=== PATIENT | male | born 1955 | race Caucasian/White ===

== ENCOUNTER 2018-04-13 06:18 | Day surgery (SDC) | payer BC, MEDICARE ==
[2018-04-11 13:02] VITALS: BMI 32.8
[~2018-04-13 06:18] MED LIST: SODIUM CHLORIDE 0.9% 1,000 ML IV SCH
[2018-04-13 06:55] LABS: Basophils % (A) 1 %; Eosinophils # (A) 0.1 k/uL (0-0.7); Eosinophils % (A) 2 %; HCT 47.8 % (39.0-53.0); HGB 15.9 gm/dL (13.0-17.5); Lymphocytes # (A) 1.8 k/uL (1.0-4.8); Lymphocytes % (A) 28 %; MCH 31.9 pg (25.0-35.0); MCHC 33.3 g/dL (31.0-37.0); MCV 95.8 fL (80.0-100.0); Mean Platelet Volume 6.8; Monocytes # (A) 0.5 k/uL (0-1.0); Monocytes % (A) 8 %; Neutrophils % (A) 61 %; Platelet Count 192 k/uL (150-450); RBC 4.99 m/uL (4.30-5.90); RDW 12.8 % (11.5-15.5); WBC 6.6 k/uL (3.8-10.6)
[2018-04-13 07:06] LABS: Anion Gap 9 mmol/L; Blood Urea Nitrogen 24 mg/dL (9-20); Calcium 9.7 mg/dL (8.4-10.2); Carbon Dioxide 28 mmol/L (22-30); Chloride 104 mmol/L (98-107); Glucose 119 mg/dL (74-99); Sodium 141 mmol/L (137-145)
[2018-04-13] MEDS ORDERED: ONDANSETRON 4 MG/2 ML VIAL ONE (07:10)
[2018-04-13] MEDS ORDERED: PROTAMINE SULFATE 10 MG/ML 5 ML VIAL IV ONE (07:10)
[2018-04-13] MEDS ORDERED: HEPARIN SODIUM,PORCINE 10,000 UNIT/ML 1 ML VIAL ONE (07:10)
[2018-04-13] MEDS ORDERED: MIDAZOLAM 2 MG/2 ML VIAL ONE (07:10)
[2018-04-13] MEDS ORDERED: ISOPROTERENOL 250 MCG/1.25 ML SYR IV ONE (07:10)
[2018-04-13] MEDS ORDERED: PROPOFOL 10 MG/ML 20 ML VIAL IV ONE (07:10)
[2018-04-13] MEDS ORDERED: fentaNYL (PF) 50 MCG/ML 2 ML AMP ONE (07:10)
[2018-04-13 07:12] LABS: Potassium 5.2 mmol/L (3.5-5.1)
[2018-04-13] MEDS ORDERED: LIDOCAINE 1% INJ 10MG/ML (20 ML MDV) SQ ONE ×2 (08:00→08:11)
[2018-04-13] MEDS ORDERED: HEPARIN SODIUM (1,000 UNIT/ML) 1,000 UNIT in SODIUM CHLORIDE 0.9% 1,000 ML IRRIGATION ONE (08:02)
[2018-04-13] MEDS ORDERED: HEPARIN SOD,PORK IN 0.45% NACL 25,000 UNIT in 0.45% NACL 1 250ML.BAG IV ONE (08:03)
[2018-04-13] MEDS ORDERED: LIDOCAINE 1% INJ 10MG/ML (20 ML MDV) ONE (08:09)
[2018-04-13] MEDS ORDERED: IOPAMIDOL-370 125ML BTL INJ ONE (10:40)
--- NOTE | 2018-04-13 11:36 | CC ---
CARDIAC CATHETERIZATION REPORT Mr. Cee is a 62-year-old male with known history of frequent ventricular ectopic activity, symptomatic, intolerant to beta osmany because of severe bradycardia, has been evaluated by Dr. Rodas to undergo ablation. He was in the EP lab undergoing ablation and because of the location of the ablation catheter, recommendation made regarding coronary angiography to localize the coronaries in relation to the ablation catheter. PROCEDURE: Using the 8-Arabic sheath in the right femoral artery, selective right and left angiography performed, a 6-Arabic 4 bend right and left Jian catheter, multiple views of the coronary artery including hemiaxial views were obtained. Following that, catheter were removed and Dr. Hernandez proceeded in continuing the ablation. FINDINGS: LEFT MAIN: This is a large-sized vessel, bifurcating into left circumflex, left anterior descending artery. Left main coronary artery has no evidence of high-grade stenosis. LEFT VENTRICULAR DESCENDING ARTERY: This is a large-sized vessel that has no evidence of high-grade stenosis. LEFT CIRCUMFLEX: This is a nondominant vessel, giving rise to an obtuse marginal branch. The left circumflex and its branches have no evidence of obstructive coronary artery disease. RIGHT CORONARY ARTERY: This is a large dominant vessel, bifurcating into PDA and posterolateral segment branches. The right coronary artery and its branches have no evidence of high-grade stenosis. CONCLUSION: Normal coronary arteries. RECOMMENDATION: Patient images are reviewed in conjunction with the images from the EP lab to localize the coronary arteries and proceed with ablation. There was no immediate complication. Duration of procedure is 10 minutes. MMODL / IJN: [id number] /
[2018-04-13] MEDS ORDERED: HYDROcodone/APAP 5-325MG 1 EACH TAB PO PRN (12:26)
[2018-04-13] MEDS ORDERED: FOLIC ACID 1 MG TAB PO SCH (12:45)
[2018-04-13] MEDS ORDERED: ACETAMINOPHEN IV (For NPO) 1,000 MG in EMPTY BAG 1 BAG IVPB ONE (13:00)
[2018-04-13] MEDS: ACETAMINOPHEN TAB 325 MG TAB PO PRN (19:45)
[2018-04-13] MEDS ORDERED: METOPROLOL TARTRATE 12.5 MG TAB PO SCH (21:00)
--- NOTE | 2018-04-13 21:32 | PCN ---
PROCEDURE NOTE Mr. Rudy Cee is a 62-year-old male patient who has very frequent PVCs almost 40-50 percent PVC burden, right bundle branch block pattern with upright QRS in 2, 3, AVF and rS pattern in lead 1 consistent with an anterior anterolateral PVC. He is brought to the EP lab in a fasting state. Written informed consent was obtained prior to the procedure. The procedure was performed under conscious sedation. Right and left groins were prepped and draped as per protocol. 1% lidocaine was used for local anesthesia. An 8-Jordanian arterial sheath was placed in the right femoral artery. This was a long sheath, 15 degrees. Venous sheaths were placed in the right and left femoral veins. Via these mapping and diagnostic catheters were placed including high right atrial catheter, His bundle, RV coronary sinus, LV, intracardiac echo catheter and the PentaRay catheter and a mapping ablation catheter. Sinus cycle length 753 milliseconds, DC interval 159 milliseconds, QRS 93 milliseconds, QT 363 milliseconds. AH interval 58 milliseconds, HV interval 50 milliseconds. This AV node Wenckebach block 260 milliseconds, left bundle branch block aberrancy during pacing. Atrial ERP from the coronary sinus 500/less than 400 milliseconds. AV node Wenckebach performed in the high right atrium 290 milliseconds. Burst stimulation from the right ventricle was performed. No arrhythmias induced. Patient had frequent PVCs in a bigeminal pattern. He was in ventricular bigeminy during the study. The 1st intracardiac echocardiography was performed. A 3D mapping was performed. The electro anatomic shell of the open aortic cusps was made. The electro anatomic shell of the coronary sinus was made, electro anatomic shell of the LV was made endocardially. A PentaRay catheter was placed retrogradely into the LV. The aortic root as well as the left ventricle were mapped and the earliest activation was found to be in a broad area in a somewhat broad area about a half to 1 cm on the anterior/anterolateral aspect of the base of the left ventricle just lateral to the left coronary cusp away from the left main. During mapping, it was observed that when pressure was applied to the catheter, the PVCs would disappear. RF ablation was applied at the earliest site which preceded the onset of the PVC by about between 10-20 milliseconds. The unipolar were sloping downwards and occasionally had sharp downward slope. The paced mapping however was suboptimal. RF ablation at this time with contact force of greater than 15 g and power between 30-40 cardoza resulted only in transient elimination of the PVCs. This area was then mapped once again, high output pacing was performed. Noncapture was noted at this site. However, the PVCs continued. The coronary sinus were then mapped. A long sheath was placed in the coronary sinus. Mapping ablation catheter was placed and irrigated tip catheter was placed in the coronary sinus and placed anteriorly close to the anterior septal branch. Activation mapping here resulted in early signals with the earliest activation of almost 26 milliseconds with better unipolar electrograms. Following this, Dr. Gill was brought in to perform an angiogram to make sure that this planned ablation site was at least 0.5 cm away from the coronary arteries. The coronary arteries are normal and the ablation site within the coronary sinus was at least half to 1 cm away from the coronary arteries. RF ablation was then applied at 10 cardoza for 10 seconds, at the 1st lesion itself within seconds, there was complete elimination of the PVCs and never returned again. RF ablations lasting 10 seconds at 15 cardoza was applied with irrigated tip catheter in the earliest activation sites in the coronary sinus and PVCs could not be induced again. Following that high-dose Isuprel was employed and ventricular pacing was performed. Burst stimulation was performed. Nonclinical PVCs were noted, but his clinical PVCs did not appear again. This was a long procedure because it involved mapping of the electroanatomic mapping of the left ventricle, ablation of the earliest site and repeat mapping of the left ventricle then access in the coronary sinus and the coronary arteries and mapping the coronary sinus to find the earliest site and radiofrequency ablation at this site. The patient tolerated the procedure well without any acute complications. There was no pericardial effusion at the end of the procedure. RESULT: Successful ablation of the epicardial PVCs (left ventricular epicardium) from within the anterior anteroseptal region of the coronary sinus with elimination of the PVCs within seconds and turning on RF at the earliest activation site which had a bipolar electrogram that preceded the PVC by 26 milliseconds and reasonably sharp downward deflection of the unipolar electrograms. The patient tolerated the procedure well without any acute complications. MMODL / IJN: [id number] /
--- NOTE | 2018-04-13 21:33 | LTR ---
DATE OF SERVICE: 04/13/[address] Pickering: I had the pleasure of seeing . Rudy Cee [place] electrophysiology followup. Rudy underwent mapping ablation of his ventricular bigeminy. He was found to have an epicardial PVC focus and successful ablation was performed via the coronary veins. After ensuring that the coronary arteries were at an adequate and safe distance away from the site. He tolerated the procedure well without any acute complications. He will continue to follow up with you and Dr. Gill as before. His beta blockers can be stopped within the next few weeks. Thank you for entrusting me in the care of your patient. Warm regards, Sincerely, MMODL / IJN: [id number] /
[2018-04-14] MEDS: ACETAMINOPHEN TAB 325 MG TAB PO PRN (06:14)
--- NOTE | 2018-04-14 07:05 | P.DS ---
Providers Attending physician: Robson Rodas Primary care physician: [facility] Course: Patient is doing well. His groins of healed well there is no pain no swelling no tenderness Denies any chest discomfort no pleuritic chest discomfort no breathing trouble no dizziness lightheadedness On examination his vitals are stable blood pressure 136/74 mmHg heart rates are normal no PVCs on telemetry Sounds are clear no rhonchi no crackles Abdomen is soft nontender Extremities are warm no edema Impression Very high PVC pertinent of between 40-50%, symptomatic Epicardial PVC focus anterolateral LV Successful PVC ablation V at the coronary sinus anterior vein Suggest Baby aspirin for 4 weeks and then stop Continue cardiac medications for now Follow-up in the office with Dr. Dr. Gill in 1 week Plan - Discharge Summary Discharge Rx Participant: No New Discharge Prescriptions: No Action Venlafaxine HCl [Effexor] 75 mg PO DAILY Pantoprazole Sodium [Protonix] 20 mg PO DAILY Metoprolol Tartrate [Lopressor] 12.5 mg PO HS Metoprolol Tartrate [Lopressor] 25 mg PO QAM Methotrexate Sodium [Methotrexate] 2.5 mg PO FR Folic Acid 1 mg PO SUMOTUWETHSA Discharge Medication List Folic Acid 1 mg PO SUMOTUWETHSA 04/11/18 [History] Methotrexate Sodium [Methotrexate] 2.5 mg PO FR 04/11/18 [History] Metoprolol Tartrate [Lopressor] 12.5 mg PO HS 04/11/18 [History] Metoprolol Tartrate [Lopressor] 25 mg PO QAM 04/11/18 [History] Pantoprazole Sodium [Protonix] 20 mg PO DAILY 04/11/18 [History] Venlafaxine HCl [Effexor] 75 mg PO DAILY 04/11/18 [History] Follow up Appointment(s)/Referral(s): Yanet Gill MD [STAFF PHYSICIAN] - 1 Week (Follow-up with Dr. Gill in 1 week Discharge home if stable, by 10 AM today No changes in medications) Activity/Diet/Wound Care/Special Instructions: Post EP study - Ablation instructions 1. Keep access sites dry for 2 days. 2. No heavy lifting or straining for 2 days. 3. Avoid bending the hips repeatedly for 2 days. 4. You may go up and down stairs slowly Call if the following is noted 1. Bleeding, increasing swelling or pain at the access sites. 2. Increasing chest discomfort, especially upon taking a deep breath. 3. Increasing shortness of breath, at rest or with exertion. 4. Undue cough / phlegm 5. Difficulty or pain while swallowing. 6. Pain or change in color in the extremities. 7. Fever, chills, rigors. 8. Increasing headache or neurologic symptoms. 9. Dizziness, fainting, palpitations No changes in medications Follow-up Dr. Gill in 1 week Discharge Disposition: HOME SELF-CARE
[2018-04-14] MEDS ORDERED: PANTOPRAZOLE 40 MG TABLET PO SCH (07:30)
[2018-04-14 08:16] VITALS: RESP 15
[2018-04-14] MEDS ORDERED: METHOTREXATE SODIUM 2.5 MG TAB PO SCH (09:00)
[2018-04-14] MEDS ORDERED: METOPROLOL TARTRATE 25 MG TAB PO SCH (09:00)
[2018-04-14] MEDS ORDERED: VENLAFAXINE HCL 75 MG TAB PO SCH (09:00)
[2018-04-14 10:07] VITALS: BP 152/90; PULSE 60; TEMP 98.3
== END 2018-04-14 10:58 | disposition home or self-care (01) ==
LOC: CATHEP 06:18 → 1SOBS 11:45 → CATHEP 04-14 10:58
PROVIDERS: ATTEND Internal Medicine Clinical Cardiac Electrophysiology
DX: I49.3 Ventricular premature depolarization (principal); I42.9 Cardiomyopathy, unspecified; I45.10 Unspecified right bundle-branch block; I10 Essential (primary) hypertension; G47.33 Obstructive sleep apnea (adult) (pediatric); Z99.89 Dependence on other enabling machines and devices; K21.9 Gastro-esophageal reflux disease without esophagitis; Z82.49 Family history of ischemic heart disease and other diseases of the circulatory system; Z79.899 Other long term (current) drug therapy
CPT/HCPCS: 93454; 85347; 93623; 93662; 93654; 80048; 85025; C1769 ×3; C1894; C1730; C1731; C1759; C1893; C1732; J2250; J2720; J1644 ×3; J2405; J2001; J8610; J3010; J0131; J2704; Q9967; 93613

== ENCOUNTER → 2020-10-31 | Outpatient (CLI) | payer MEDICARE ==
--- NOTE | 2020-10-31 13:52 | XR ---
EXAM TYPE: LUMBAR SPINE X RAY SERIES COMPARISON: NONE HISTORY: Pain TECHNIQUE: Three views are submitted. FINDINGS: Alignment is anatomic. The pedicles are intact. The transverse processes are intact. There is hype rtrophic and degenerative changes throughout the lumbar spine most marked at L3-4 and L4-5. Anterior hypertrophic spurs are noted. There are vascular. No spondylolisthesis. Multilevel facet arthropathy. IMPRESSION: 1. Multilevel facet arthropathy and degenerative disc disease most marked at L3-4 and L4-L5. Foramina l encroachment is suspected consider follow-up MRI.
== END | disposition home or self-care (01) ==
LOC: RADXRMAIN 13:13
PROVIDERS: ATTEND Internal Medicine
DX: M51.36 Other intervertebral disc degeneration, lumbar region (principal); M46.96 Unspecified inflammatory spondylopathy, lumbar region; G89.29 Other chronic pain
CPT/HCPCS: 72100

== ENCOUNTER → 2021-01-09 | Outpatient (CLI) | payer MEDICARE, BC ==
--- NOTE | 2021-01-09 10:54 | XR ---
EXAMINATION TYPE: XR chest 2V DATE OF EXAM: 01/09/2021 COMPARISON: NONE TECHNIQUE: PA and lateral views submitted. HISTORY: Presurgical FINDINGS: The lungs are clear and there is no pneumothorax, pleural effusion, or focal pneumonia. Heart size normal. No overt failure. IMPRESSION: 1. No acute process.
== END | disposition home or self-care (01) ==
LOC: RADXRMAIN 10:14
PROVIDERS: ATTEND Neurological Surgery
DX: Z01.818 Encounter for other preprocedural examination (principal)
CPT/HCPCS: 71046

== ENCOUNTER → 2021-04-03 | Outpatient (CLI) | payer MEDICARE, BC ==
--- NOTE | 2021-04-03 12:33 | US ---
EXAMINATION TYPE: US venous doppler duplex LE LT DATE OF EXAM: 04/03/2021 12:02 PM COMPARISON: NONE CLINICAL HISTORY: M79.605 Left leg pain. Left calf cramping per patient. No redness. Slight swellin g per patient. SIDE PERFORMED: Left TECHNIQUE: The lower extremity deep venous system is examined utilizing real time linear array sonog luda with graded compression, doppler sonography and color-flow sonography. VESSELS IMAGED: Common Femoral Vein Deep Femoral Vein Greater Saphenous Vein * Femoral Vein Popliteal Vein Small Saphenous Vein * Proximal Calf Veins (* superficial vessels) Left Leg: Negative for DVT Grayscale, color doppler, spectral doppler imaging performed of the deep veins of the left lower extr emity. There is normal flow, compressibility, vascular waveforms. IMPRESSION: No ultrasound evidence for acute DVT in the left lower extremity.
== END | disposition home or self-care (01) ==
LOC: RADUSWWP 11:44
PROVIDERS: ATTEND Internal Medicine
DX: M79.605 Pain in left leg (principal)

== ENCOUNTER → 2024-02-14 | Outpatient (CLI) | payer MEDICARE ==
--- NOTE | 2024-02-16 09:39 | US ---
EXAMINATION TYPE: US groin RT DATE OF EXAM: 02/14/2024 COMPARISON: NONE CLINICAL INDICATION: Male, 68 years old with history of K40.90 UNIL INGUINAL HERNIA, W/O OBST OR GANG R, NO; Pt had hernia repair surgery in 2019 in rt groin with mesh and patient states he is starting t o have pain in that area. TECHNIQUE: Right groin scanned in area of pain. FINDINGS: No obvious abnormality found in area of pain IMPRESSION: No evidence for acute process mass or lymphadenopathy. [facility], , 02/16/2024 9:37 AM
== END | disposition home or self-care (01) ==
LOC: RADUSWWP 15:21
PROVIDERS: ATTEND Surgery
DX: K40.90 Unilateral inguinal hernia, without obstruction or gangrene, not specified as recurrent (principal)

== ENCOUNTER → 2024-02-24 | Outpatient (CLI) | payer MEDICARE ==
[2024-02-24 08:59] LABS: African American GFR (CKD) >90 (>60 ml/min/1.73 sqM); Blood Urea Nitrogen 24 mg/dL (9-20); Non-African American GFR(CKD) >90 (>60 ml/min/1.73 sqM)
--- NOTE | 2024-02-24 10:32 | CT ---
EXAMINATION TYPE: CT pelvis w con CT DLP: 1557.8 mGycm, Automated exposure control for dose reduction was used. DATE OF EXAM: 02/24/2024 10:18 AM COMPARISON: Right groin ultrasound 02/14/2024 CLINICAL INDICATION:Male, 68 years old with history of HERNIA; HX OF INGUINAL HERNIA REPAIR IN , POSSIBLY NEED NEW REPAIR. TECHNIQUE: Standard CT of the pelvis following the administration of 100 cc of Isovue [address] material and oral contrast. Coronal and sagittal reformats were performed. FINDINGS: BLADDER: Unremarkable. Contrast is demonstrated within the urinary bladder distal bilateral ureters o n delayed phase. REPRODUCTIVE: Unremarkable. BOWEL: A few scattered distal colonic diverticula or definite sigmoid colon. Enteric contrast is demo nstrated within the small bowel. The visualized portion of the appendix is unremarkable. No evidence of bowel obstruction. PERITONEUM: No evidence of pneumoperitoneum or free fluid. VASCULATURE: Mild atherosclerotic calcification of the aorta and its branches. MUSCULOSKELETAL: No acute osseous abnormalities. Moderate degenerative disease of the visualized lumb ar spine. Post surgical changes with disc spacer identified at L2-L3. LYMPH NODES: No evidence for lymphadenopathy. SOFT TISSUE/ABDOMINAL WALL: Postsurgical changes from right inguinal hernia repair without evidence f or recurrent hernia or abnormality. Minimally patulous at the left inguinal ring. IMPRESSION: 1. Postsurgical changes from right inguinal hernia repair without evidence for recurrent hernia or a bnormality. 2. Colonic diverticulosis without evidence for acute diverticulitis. [facility], , 02/24/2024 10:30 AM
== END | disposition home or self-care (01) ==
LOC: RADCTMAIN 07:53
PROVIDERS: ATTEND Surgery
DX: K40.90 Unilateral inguinal hernia, without obstruction or gangrene, not specified as recurrent
CPT/HCPCS: 36415; 72193; 82565; 84520

== ENCOUNTER → 2024-05-29 | Outpatient (CLI) | payer MEDICARE | END | disposition home or self-care (01) | LOC: LABWHC1 10:43 | PROVIDERS: ATTEND Internal Medicine Interventional Cardiology | DX: I42.8 Other cardiomyopathies (principal) | CPT/HCPCS: 36415; 83880 ==

== ENCOUNTER → 2024-07-24 | Outpatient (CLI) | payer MEDICARE ==
[2024-07-24 08:46] LABS: Appearance,Urine Clear (Clear); Bilirubin,Urine Negative (Negative); Blood,Urine Negative (Negative); Color,Urine Colorless; Glucose,Urine (UA) 4+ (Negative); Ketones,Urine Negative (Negative); Leukocyte Esterase,Urine Negative (Negative); Nitrite,Urine Negative (Negative); Protein,Urine Negative (Negative); Specific Gravity,Urine 1.013 (1.001-1.035); Urobilinogen,Urine <2.0 mg/dL (<2.0)
[2024-07-24 17:54] LABS: Basophils # (A) 0.05 X 10*3/uL (0.00-0.10); Basophils % (A) 0.6 %; Eosinophils % (A) 1.2 %; HCT 44.5 % (39.6-50.0); Lymphocytes # (A) 1.64 X 10*3/uL (0.90-5.00); Lymphocytes % (A) 18.9 %; MCH 32.1 pg (27.0-32.0); MCHC 31.5 g/dL (32.0-37.0); MCV 102.1 FL (80.0-97.0); Mean Platelet Volume 9.1 FL (9.5-12.2); Monocytes # (A) 0.69 X 10*3/uL (0.20-1.00); Monocytes % (A) 7.9 %; NRBC Per 100 WBC 0 X 10*3/uL (0.00-0.01); Neutrophils # (A) 6.17 X 10*3/uL (1.80-7.70); Neutrophils % (A) 70.9 %; Platelet Count 332 X 10*3/uL (140-440); RBC 4.36 X 10*6/uL (4.40-5.60); RDW 13.4 % (11.5-14.5); WBC 8.69 X 10*3/uL (4.50-10.00)
[2024-07-24 18:28] LABS: ALT 22 U/L (10-49); AST 22 U/L (14-35); Albumin 4.3 g/dL (3.8-4.9); Albumin/Globulin Ratio 2.05 Ratio (1.60-3.17); Alkaline Phosphatase 48 U/L (41-126); BUN/Creat Ratio 17.11 Ratio (12.00-20.00); Blood Urea Nitrogen 15.4 mg/dL (9.0-27.0); Calcium 9.5 mg/dL (8.7-10.3); Carbon Dioxide 25.8 mmol/L (21.6-31.8); Chloride 99 mmol/L (96-109); Globulin 2.1 g/dL (1.6-3.3); Glucose 144 mg/dL (70-110); LDL Cholesterol,Calculated 18.3 mg/dL (0.0-131.0); Potassium 4.8 mmol/L (3.5-5.5); Sodium 136 mmol/L (135-145); Total Bilirubin 0.6 mg/dL (0.3-1.2); Total Protein 6.4 g/dL (6.2-8.2)
[2024-07-25 01:01] LABS: Microalbumin Creatinine Ratio <28 mg/g Cr (0-30); Urine Creatinine 43.2 mg/dL (39.0-259.0)
== END | disposition home or self-care (01) ==
LOC: LABWHC1 07:53
PROVIDERS: ATTEND Internal Medicine
DX: Z00.00 Encounter for general adult medical examination without abnormal findings (principal); I10 Essential (primary) hypertension; I49.3 Ventricular premature depolarization; E78.2 Mixed hyperlipidemia; E11.69 Type 2 diabetes mellitus with other specified complication
CPT/HCPCS: 36415; 80053; 80061; 81003; 82043; 82306; 82570; 83036; 83735; 84443; 85025

== ENCOUNTER 2024-08-19 18:11 | Emergency (ER) | payer MEDICARE ==
--- NOTE | 2024-08-19 18:43 | ED ---
Arrhythmia/Palpitations HPI - General Chief Complaint: Arrhythmia/Palpitations Stated Complaint: hypertension Time Seen by Provider: 08/19/24 18:17 Source: patient Mode of arrival: ambulatory Limitations: no limitations - History of Present Illness Initial Comments: This patient is a 68-year-old man with history of 2 previous ablations who presents with complaint that his heart rate had been markedly elevated earlier. The patient states that he had been exerting himself, he was playing with a granddaughter when he noticed that his heart rate took off. He states that he has a monitor and it was reading in the 150s. The patient states that he then rested. Patient also was having some comfort in the back of the head and neck and also diaphoresis associated. When the heart rate continued to be in the 130s his family persuaded him to come to the emergency department. He also notes that he was having some symptoms intermittently over the past week or so but when the heart rate was elevated that did not persist. His heart rate is lower now and the associated symptoms have all resolved. MD Complaint: rapid heart beat -: hour(s) Context: occurred during exertion Arrhythmia History: atrial fibrillation, on anti-coagulants, history of ablation Associated Symptoms: chest pain, diaphoresis Treatments Prior to Arrival: beta-osmany - Related Data Home Medications Medication Instructions Recorded Confirmed Folic Acid 1 mg PO SUMOTUWETHSA 04/11/18 06/06/24 Metoprolol Tartrate [Lopressor] 25 mg PO BID 04/11/18 06/06/24 Pantoprazole Sodium [Protonix] 40 mg PO DAILY 04/11/18 06/06/24 Venlafaxine HCl [Effexor] 75 mg PO DAILY 04/11/18 06/06/24 metHOTREXate sodium 2.5 mg PO FR 04/11/18 06/06/24 Atorvastatin Calcium [Lipitor] 40 mg PO DAILY 06/01/24 06/06/24 Cholecalciferol (Vitamin D3) 2,000 units PO DAILY 06/01/24 06/06/24 [Vitamin D3 (50 Mcg = 2000 Iu)] Empagliflozin [Jardiance] 25 mg PO DAILY 06/01/24 06/06/24 Ezetimibe [Zetia] 10 mg PO DAILY 06/01/24 06/06/24 Multivitamin [Multivitamins Adult 1 each PO DAILY 06/01/24 06/06/24 Gummies] Spironolactone [Aldactone] 25 mg PO DAILY 06/01/24 06/06/24 Tamsulosin [Flomax] 0.4 mg PO DAILY 06/01/24 06/06/24 lisinopriL [Zestril] 10 mg PO BID 06/01/24 06/06/24 metFORMIN HCL 1,000 mg PO HS 06/01/24 06/06/24 Previous Rx's Medication Instructions Recorded HYDROcodone/APAP 5-325MG [[place] 1 tab PO Q6HR PRN 3 Days #10 tab 06/06/24 5-325] Allergies Allergy/AdvReac Type Severity Reaction Status Date / Time No Known Allergies Allergy Verified 08/19/24 18:16 Review of Systems ROS Statement: Those systems with pertinent positive or pertinent negative responses have been documented in the HPI. ROS Other: All systems not noted in ROS Statement are negative. Constitutional: Denies: fever, chills, weakness Eyes: Denies: vision change Respiratory: Denies: cough, dyspnea Cardiovascular: Reports: chest pain, palpitations. Denies: orthopnea, edema, syncope Gastrointestinal: Reports: nausea. Denies: abdominal pain, vomiting, diarrhea Genitourinary: Denies: dysuria, hematuria Musculoskeletal: Denies: back pain Skin: Denies: rash Neurological: Denies: headache, weakness Past Medical History Past Medical History: GERD/Reflux, Hypertension, Sleep Apnea/CPAP/BIPAP Additional Past Medical History / Comment(s): SEE DR RODAS H&P, HX OF DERCUMS DX, HX OF NUTCRACKER ESOPHAGUS, POSTIONAL VERTIGO, DIVERTICULOSIS History of Any Multi-Drug Resistant Organisms: None Reported Past Surgical History: Cholecystectomy, Hernia Repair Additional Past Surgical History / Comment(s): PYLORIC STENOSIS SX , RT INGUINAL HERNIA REPAIR, STATES 149 FATTY TUMORS REMOVED R/T DERCUMS DX Additional Past Anesthesia/Blood Transfusion Reaction / Comment(s): STATES PREV HX OF ISSUES WITH ANESTHESIA, NONE SINCE 100LB WT LOSS Past Psychological History: Depression Smoking Status: Never smoker - Past Family History Mother Family Medical History: Diabetes Mellitus Father Additional Family Medical History / Comment(s): AT AGE 50 IN MIDDLE OF OPEN HEART General Exam Limitations: no limitations General appearance: alert, in no apparent distress Head exam: Present: atraumatic, normocephalic Eye exam: Present: normal appearance. Absent: scleral icterus, conjunctival injection ENT exam: Present: normal oropharynx Neck exam: Present: normal inspection Respiratory exam: Present: normal lung sounds bilaterally. Absent: respiratory distress, wheezes, rales, rhonchi, stridor, accessory muscle use Cardiovascular Exam: Present: regular rate, normal rhythm, normal heart sounds. Absent: systolic murmur, diastolic murmur, rubs, gallop GI/Abdominal exam: Present: soft. Absent: distended, tenderness, guarding, rebound, rigid, mass Extremities exam: Present: normal inspection, normal capillary refill. Absent: pedal edema, calf tenderness Back exam: Present: normal inspection. Absent: CVA tenderness (R), CVA tender ness (L) Neurological exam: Present: alert Skin exam: Present: warm, dry, intact, normal color. Absent: rash Course Vital Signs 08/19/24 08/19/24 08/19/24 18:13 18:30 21:11 Temperature 98.5 F 98.4 F Pulse Rate 113 H 103 H 90 Respiratory 18 18 17 Rate Blood Pressure 126/82 130/72 O2 Sat by Pulse 96 97 95 Oximetry EKG Findings - EKG Results: EKG: interpreted by ERMD, sinus rhythm EKG shows: tachycardia (104 bpm) - Blocks, [place], Hypertrophy, ST Abn: QRS axis and voltage: left axis deviation (-30 to -90) (Borderline), pulmonary disease, low voltage (<0.5 MV total QRS and <1.0 MV in each precordial lead) Medical Decision Making - Medical Decision Making Patient had chest x-ray that I interpreted as negative for acute infiltrate, pneumothorax, congestive heart failure Was pt. sent in by a medical professional or institution (, PA, MAT REPAIRER, urgent care, hospital, or fpc...) When possible be specific @ -[No] Did you speak to anyone other than the patient for history (EMS, parent, family, police, friend...)? What history was obtained from this source @ -[No] Did you review nursing and triage notes (agree or disagree)? Why? @ -[I reviewed and agree with nursing and triage notes] Were old charts reviewed (outside hosp., previous admission, EMS record, old EKG, old radiological studies, urgent care reports/EKG's, fpc records)? Report findings @ -[No old charts were reviewed] Differential Diagnosis (chest pain, altered mental status, abdominal pain women, abdominal pain men, vaginal bleeding, weakness, fever, dyspnea, syncope, headache, dizziness, GI bleed, back pain, seizure, CVA, palpatations, mental health, musculoskeletal)? @ -[Differential Palpitations Ventricular arrhythmias, atrial arrhythmias, myocardial infarction, anemia, thyrotoxicosis, electrolyte imbalance, hypokalemia, pulmonary embolism, pulmonary disease, drugs, alcohol, anxiety, stress.... This is not meant to be an all-inclusive list. EKG interpreted by me (3pts min.). @ -[I interpreted as above] X-rays interpreted by me (1pt min.). @ -[I interpreted as above CT interpreted by me (1pt min.). @ -[None done] U/S interpreted by me (1pt. min.). @ -[None done] What testing was considered but not performed or refused? (CT, X-rays, U/S, labs)? Why? @ -[None] What meds were considered but not given or refused? Why? @ -[None] Did you discuss the management of the patient with other professionals (professionals i.e. , PA, MAT REPAIRER, lab, RT, psych nurse, social work lecturer, goodwill representative, teacher, targeting acquisition officer, correctional case records supervisor)? Give summary @ -[No] Was smoking cessation discussed for >3mins.? @ -[No] Was critical care preformed (if so, how long)? @ -[No] Were there social determinants of health that impacted care today? How? (Homelessness, low income, unemployed, alcoholism, drug addiction, transportation, low edu. Level, literacy, decrease access to med. care, halfway, rehab)? @ -[No] Was there de-escalation of care discussed even if they declined (Discuss DNR or withdrawal of care, Hospice)? DNR status @ -[No] What co-morbidities impacted this encounter? (DM, HTN, Smoking, COPD, CAD, Cancer, CVA, ARF, Chemo, Hep., AIDS, mental health diagnosis, sleep apnea, morbid obesity)? @ -[None] Was patient admitted / discharged? Hospital course, mention meds given and route, prescriptions, significant lab abnormalities, going to OR and other pertinent info. @ -[This patient is a 68-year-old man here to have evaluation for palpitations and elevated heart rate. The patient's labs suggestive of degree of dehydration. The patient also having some mild hyponatremia. He is given saline and on reevaluation is feeling better. He was offered admission but states feeling better and would like to go home. We discussed appropriate further care and follow-up as well as return parameters. Undiagnosed new problem with uncertain prognosis? @ -[No] Drug Therapy requiring intensive monitoring for toxicity (Heparin, Nitro, Insulin, Cardizem)? @ -[No] Were any procedures done? @ -[No] Diagnosis/symptom? @ -[Acute hyponatremia Acute dehydration Palpitations Acute sinus tachycardia Acute, or Chronic, or Acute on Chronic? @ -[Acute Uncomplicated (without systemic symptoms) or Complicated (systemic symptoms)? @ -[Uncomplicated Side effects of treatment? @ -[No] Exacerbation, Progression, or Severe Exacerbation? @ -[No] Poses a threat to life or bodily function? How? (Chest pain, [place], PA, pneumonia, PE, COPD, DKA, ARF, appy, cholecystitis, CVA, Diverticulitis, Homicidal, Suicidal, threat to staff... and all critical care pts) @ -[No] All treatments are based on ideal body weight as in ED triage - Lab Data Result diagrams: 08/19/24 18:58 08/19/24 18:58 Lab Results 08/19/24 08/19/24 08/19/24 Range/Units 18:58 18:58 18:58 WBC 9.48 (4.50-10.00) 10*3/uL RBC 4.62 (4.40-5.60) 10*6/uL Hgb 15.2 (13.0-17.0) g/dL Hct 44.3 (39.6-50.0) % MCV 95.9 (80.0-97.0) fL MCH 32.9 H (27.0-32.0) pg MCHC 34.3 (32.0-37.0) g/dL Plt Count 249 (140-440) 10*3/uL MPV 8.7 L (9.5-12.2) fL Immature Gran % (Auto) 0.2 % Neutrophils % 70.2 % Lymphocytes % 18.8 % Monocytes % 9.9 % Eosinophils % 0.5 % Basophils % 0.4 % Immature Gran # 0.02 (0.00-0.04) 10*3/uL Neutrophils # 6.65 (1.80-7.70) 10*3/uL Lymphocytes # 1.78 (0.90-5.00) 10*3/uL Monocytes # 0.94 (0.20-1.00) 10*3/uL Eosinophils # 0.05 (0.04-0.35) 10*3/uL Basophils # 0.04 (0.00-0.10) 10*3/uL PT 10.4 (10.0-12.5) sec INR 0.9 (<1.2) APTT 21.9 L (22.0-30.0) sec Sodium 131 L (137-145) mmol/L Potassium 4.7 (3.5-5.1) mmol/L Chloride 96 L (98-107) mmol/L Carbon Dioxide 23 (22-30) mmol/L Anion Gap 12 mmol/L BUN 28 H (9-20) mg/dL Creatinine 1.11 (0.66-1.25) mg/dL Est GFR (CKD-EPI)AfAm 79 (>60 ml/min/1.73 sqM) Est GFR (CKD-EPI)NonAf 69 (>60 ml/min/1.73 sqM) Glucose 139 H (74-99) mg/dL Calcium 10.4 H (8.4-10.2) mg/dL Magnesium 2.1 (1.6-2.3) mg/dL Total Bilirubin 0.5 (0.2-1.3) mg/dL AST 29 (17-59) U/L ALT 24 (4-49) U/L Alkaline Phosphatase 46 (38-126) U/L Troponin I (0.000-0.034) ng/mL NT-Pro-B Natriuret Pep 24 pg/mL Total Protein 7.1 (6.3-8.2) g/dL Albumin 4.5 (3.5-5.0) g/dL 08/19/24 Range/Units 18:58 WBC (4.50-10.00) 10*3/uL RBC (4.40-5.60) 10*6/uL Hgb (13.0-17.0) g/dL Hct (39.6-50.0) % MCV (80.0-97.0) fL MCH (27.0-32.0) pg MCHC (32.0-37.0) g/dL Plt Count (140-440) 10*3/uL MPV (9.5-12.2) fL Immature Gran % (Auto) % Neutrophils % % Lymphocytes % % Monocytes % % Eosinophils % % Basophils % % Immature Gran # (0.00-0.04) 10*3/uL Neutrophils # (1.80-7.70) 10*3/uL Lymphocytes # (0.90-5.00) 10*3/uL Monocytes # (0.20-1.00) 10*3/uL Eosinophils # (0.04-0.35) 10*3/uL Basophils # (0.00-0.10) 10*3/uL PT (10.0-12.5) sec INR (<1.2) APTT (22.0-30.0) sec Sodium (137-145) mmol/L Potassium (3.5-5.1) mmol/L Chloride (98-107) mmol/L Carbon Dioxide (22-30) mmol/L Anion Gap mmol/L BUN (9-20) mg/dL Creatinine (0.66-1.25) mg/dL Est GFR (CKD-EPI)AfAm (>60 ml/min/1.73 sqM) Est GFR (CKD-EPI)NonAf (>60 ml/min/1.73 sqM) Glucose (74-99) mg/dL Calcium (8.4-10.2) mg/dL Magnesium (1.6-2.3) mg/dL Total Bilirubin (0.2-1.3) mg/dL AST (17-59) U/L ALT (4-49) U/L Alkaline Phosphatase (38-126) U/L Troponin I <0.012 (0.000-0.034) ng/mL NT-Pro-B Natriuret Pep pg/mL Total Protein (6.3-8.2) g/dL Albumin (3.5-5.0) g/dL Disposition Clinical Impression: Palpitations Narrative: Paroxysmal atrial fibrillation Disposition: HOME SELF-CARE Condition: Good Instructions (If sedation given, give patient instructions): Heart Palpitations (ED) Is patient prescribed a controlled substance at d/c from ED?: No Referrals: Amelia Pickering MD [Primary Care Provider] - 1-2 days Robson Rodas MD [STAFF PHYSICIAN] - 1-2 days
[2024-08-19 19:05] LABS: HCT 44.3 % (39.6-50.0); HGB 15.2 g/dL (13.0-17.0); MCH 32.9 pg (27.0-32.0); MCHC 34.3 g/dL (32.0-37.0); MCV 95.9 fL (80.0-97.0); Mean Platelet Volume 8.7 fL (9.5-12.2); Neutrophils % (A) 70.2 %; Platelet Count 249 10*3/uL (140-440); RBC 4.62 10*6/uL (4.40-5.60); RDW 13.2 % (11.5-14.5); WBC 9.48 10*3/uL (4.50-10.00)
[2024-08-19 19:06] LABS: Basophils # (A) 0.04 10*3/uL (0.00-0.10); Basophils % (A) 0.4 %; Eosinophils # (A) 0.05 10*3/uL (0.04-0.35); Eosinophils % (A) 0.5 %; Lymphocytes # (A) 1.78 10*3/uL (0.90-5.00); Lymphocytes % (A) 18.8 %; Monocytes # (A) 0.94 10*3/uL (0.20-1.00); Monocytes % (A) 9.9 %; Neutrophils # (A) 6.65 10*3/uL (1.80-7.70)
[2024-08-19 19:17] LABS: ALT 24 U/L (4-49); AST 29 U/L (17-59); African American GFR (CKD) 79 (>60 ml/min/1.73 sqM); Albumin 4.5 g/dL (3.5-5.0); Alkaline Phosphatase 46 U/L (38-126); Anion Gap 12 mmol/L; Blood Urea Nitrogen 28 mg/dL (9-20); Calcium 10.4 mg/dL (8.4-10.2); Carbon Dioxide 23 mmol/L (22-30); Chloride 96 mmol/L (98-107); Glucose 139 mg/dL (74-99); Magnesium 2.1 mg/dL (1.6-2.3); Non-African American GFR(CKD) 69 (>60 ml/min/1.73 sqM); Potassium 4.7 mmol/L (3.5-5.1); Sodium 131 mmol/L (137-145); Total Bilirubin 0.5 mg/dL (0.2-1.3); Total Protein 7.1 g/dL (6.3-8.2)
[2024-08-19 19:23] LABS: INR 0.9 (<1.2); Partial Thromboplastin Time 21.9 sec (22.0-30.0); Prothrombin Time 10.4 sec (10.0-12.5)
[2024-08-19 19:26] LABS: NT-Pro-B-Type Natriuretic Pept 24 pg/mL
--- NOTE | 2024-08-19 19:34 | XR ---
EXAMINATION TYPE: XR chest 2V DATE OF EXAM: 08/19/2024 7:07 PM COMPARISON: Prior chest radiograph 01/09/2021. CLINICAL INDICATION: Male, 68 years old with history of dysrhythmia; [facility] TECHNIQUE: XR chest 2V Frontal and lateral views of the chest. FINDINGS: Lungs/Pleura: There is no evidence of pleural effusion, focal consolidation, or pneumothorax. Pulmonary vascularity: Unremarkable. Heart/mediastinum: Cardiomediastinal silhouette is unremarkable. Musculoskeletal: No acute osseous pathology. Other findings: None IMPRESSION: No acute cardiopulmonary disease/process. [facility], , 08/19/2024 7:31 PM
[2024-08-19] MEDS: SODIUM CHLORIDE 0.9% 500 ML 500 ML IV STA (20:44)
[2024-08-19 21:14] VITALS: BP 130/72; PULSE 90; RESP 17; TEMP 98.4
== END 2024-08-19 21:44 | disposition home or self-care (01) ==
LOC: EC 18:11
DX: R00.2 Palpitations (principal)
CPT/HCPCS: 36415; 71046; 80053; 83735; 83880; 84484; 85025; 85610; 85730; 93005; 96360; 99285

== ENCOUNTER → 2024-08-22 | Outpatient (CLI) | payer MEDICARE ==
--- NOTE | 2024-08-22 15:23 | CT ---
CT thorax with contrast HISTORY: Tachycardia and shortness of breath. COMPARISON: None. TECHNIQUE: Multiple axial images were obtained through the thorax following the uneventful administra tion of IV contrast. FINDINGS: The heart and great vessels the chest are normal in size. There is no mediastinal, hilar or axillary adenopathy. There is no airspace consolidation. There is no pleural effusion or pneumothorax. There is a 4.65 mm groundglass juxtapleural fissural nodule right middle lobe. There is a 6.2 mm nodu le in the right lower lobe. There are no left lung nodules. Limited scanning through the upper abdomen reveals no gross abnormality. There are no focal osseous lesions. IMPRESSION: 1. No acute cardiopulmonary disease. 2. Right lung nodules as described above. Follow-up CT thorax in 6 months is recommended to confirm t he stability of a 6.2 mm nodule in the right lower lobe. [facility], , 08/22/2024 3:21 PM
== END | disposition home or self-care (01) ==
LOC: RADCTMAIN 14:24
PROVIDERS: ATTEND Internal Medicine Interventional Cardiology
DX: R91.8 Other nonspecific abnormal finding of lung field (principal); R00.0 Tachycardia, unspecified; R06.00 Dyspnea, unspecified
CPT/HCPCS: 71260; Q9967